=== PATIENT | male | born 1965 | race Caucasian/White ===

== ENCOUNTER 2017-10-17 16:02 | Emergency (ER) | payer OTHER ==
[~2017-10-17] VITALS: Ht 175.3 cm; Wt 79.4 kg
== END 2017-10-17 22:59 | disposition home or self-care (01) ==
LOC: ER 16:02
DX: H92.02 Otalgia, left ear (principal); H61.22 Impacted cerumen, left ear

== ENCOUNTER → 2019-07-18 | Emergency (ER) | payer OTHER ==
[~2019-07-18] VITALS: Ht 175.3 cm; Wt 72.6 kg
[~2019-07-18] MED LIST: FORTAMET500 MG
== END | disposition home or self-care (01) ==
LOC: ER 19:29
DX: E11.65 Type 2 diabetes mellitus with hyperglycemia (principal)